=== PATIENT | male | born 2000 | race Caucasian/White ===

== ENCOUNTER 2023-07-02 12:15 | Emergency (ER) | payer MEDICAID ==
[~2023-07-02] VITALS: Ht 177.8 cm; Wt 103.4 kg
[2023-07-02 12:29] VITALS: BP 133/90; PULSE 77; RESP 18; TEMP 98.6; O2SAT 98
[2023-07-02] MEDS ORDERED: IBUPROFEN 600 MG TAB ONE (13:30)
[2023-07-02] MEDS: IBUPROFEN 600 MG TAB PO ONE (13:32)
[2023-07-02] MEDS ORDERED: IBUP-2213 PO (13:35)
[2023-07-02] MEDS ORDERED: GABA300C PO (13:35)
[2023-07-02 13:42] VITALS: BP 133/90; PULSE 77; RESP 18; TEMP 98.6; O2SAT 98
== END 2023-07-02 13:39 | disposition home or self-care (01) ==
LOC: MED 12:15
DX: S43.401A Unspecified sprain of right shoulder joint, initial encounter (principal); M25.512 Pain in left shoulder; R03.0 Elevated blood-pressure reading, without diagnosis of hypertension
CPT/HCPCS: 99282; 99283